=== PATIENT | female | born 1995 | race Two or more races ===

== ENCOUNTER 2020-05-20 05:37 | Day surgery (SDC) | payer BC ==
[2020-05-20] VITALS (8 sets, daily range): BP systolic 101–110; BP diastolic 56–70
[~2020-05-20] VITALS: Ht 165.1 cm; Wt 87.1 kg
[2020-05-20] MEDS ORDERED: LR 1000ml 1,000 ML IVLG SCH (06:26)
[2020-05-20] MEDS ORDERED: Midazolam 2mg/2ml Inj IVP PRN (06:30)
[2020-05-20] MEDS ORDERED: Atropine Inj 1mg/10ml Syr IV PRN (06:30)
[2020-05-20] MEDS ORDERED: DiphenhydrAMINE 50mg/ml Inj IVP PRN (06:30)
[2020-05-20] MEDS ORDERED: fentaNYL 100 mcg/2 mL IV PRN (06:30)
--- NOTE | 2020-05-20 06:31 | Anethesia Preoperative Eval ---
Anesthesia Pre-op PMH/ROS General Date of Evaluation: May 20, 2020 Time of Evaluation: 06:28 Anesthesiologist: yamile ASA Score: ASA 2 Mallampati Score Class I : Soft palate, uvula, fauces, pillars visible Class II: Soft palate, uvula, fauces visible Class III: Soft palate, base of uvula visible Class IV: Only hard plate visible Mallampati Classification: Class II Surgeon: nanda Diagnosis: chronic diarrhea Surgical Procedure: colonoscopy Anesthesia History: none, other - awareness under anesthesia Social History: smoking - nonsmoker Family History: no anesthesia problems Allergies: Coded Allergies: No Known Allergies (Unverified , 05/18/20) Medications: see eMAR Patient NPO?: Yes Past Medical History Gastrointestinal/Genitourinary: Reports: other - chronic diarrhea, abdominal pain Anesthesia Pre-op Phys. Exam Physician Exam Last Vital Signs Date Time Temp Pulse Resp B/P (MAP) Pulse Ox O2 Delivery O2 Flow Rate FiO2 05/20/20 06:08 Room Air 05/20/20 06:04 97.7 58 18 102/61 100 Constitutional: NAD Neurologic: CN 2-12 intact Cardiovascular: other - bradycardia Respiratory: CTA Gastrointestinal: S/NT/ND Airway Exam Mallampati Score: Class II MO: full Neck: flexible TMD: 2fb ROM: full Teeth: intact Anesthesia Pre-op A/P Labs Microbiology Date/Time Source Procedure Growth Status 05/18/20 11:40 Nasopharynx SARS-CoV-2 RdRp Gene Assay - Final Complete Labs Test 05/20/20 05:50 Urine HCG, Qualitative Negative (NEGATIVE) Urine Test Test 05/20/20 05:50 Urine HCG, Qualitative Negative (NEGATIVE) Risk Assessment & Plan Assessment: asa2 Plan: mac Status Change Before Surgery: No Pre-Antibiotics Drug: Judith Husain MD May 20, 2020 06:30
[2020-05-20] MEDS ORDERED: Lidocaine 1% MPF 10mg/ml 5ml ONE (07:00)
[2020-05-20] MEDS ORDERED: Atropine Sulfate 0.4mg/ml inj ONE (07:00)
[2020-05-20] MEDS ORDERED: LR 1000ml ONE (07:00)
--- NOTE | 2020-05-20 07:10 | Pre-Procedure Note/Attestation ---
Pre-Procedure Note/Attestation Complete Prior to Procedure Planned Procedure: not applicable Procedure Narrative: colonoscopy Indications for Procedure Pre-Operative Diagnosis: diarrhea Attestation I attest that I discussed the nature of the procedure; its benefits; risks and complications; and alternatives (and the risks and benefits of such alternatives ), prior to the procedure, with the patient (or the patient's legal personal banking representative). I attest that, if there was a reasonable possibility of needing a blood transfusion, the patient (or the patient's legal personal banking representative) was given the [facility] standardized written summary, pursuant to the Oscar Norris Blood Safety Act ([place] Health and Safety Code # 1645, as amended). I attest that I re-evaluated the patient just prior to the surgery and that there has been no change in the patient's H&P, except as documented below: Alex Aquino MD May 20, 2020 07:10
--- NOTE | 2020-05-20 07:11 | Short Stay Surgery H&P ---
History of Present Illness History of Present Illness Chief Complaint see attached H&P HPI Luzmaria Mckeon is a 24 year old female who was admitted on for Chronic Diarrhea Patient History Allergies: Coded Allergies: No Known Allergies (Unverified , 05/18/20) Medication History No Active Prescriptions or Reported Meds Physical Exam Vital Signs Last Vital Signs Date Time Temp Pulse Resp B/P (MAP) Pulse Ox O2 Delivery O2 Flow Rate FiO2 05/20/20 06:08 Room Air 05/20/20 06:04 97.7 58 18 102/61 100 Labs Laboratory Tests Test 05/20/20 05:50 Urine HCG, Qualitative Negative (NEGATIVE) Plan Attestation Are the patient's medical conditions optimized for surgery? Alex Aquino MD May 20, 2020 07:11
--- NOTE | 2020-05-20 07:48 | Endoscopy Procedure Note ---
Endoscopy Procedure Note General Indication for Procedure: diarrhea Procedures Performed: colonoscopy Operative Findings/Diagnosis: nl Specimen: yes Pt Tolerated Procedure Well: Yes Estimated Blood Loss: none Anesthesia Anesthesiologist: Delfin Randolph Anesthesia: moderate sedation Medications Medication Given: see anesthesia record Inserted Devices Implant(s) used?: No Quality Quality of Bowel Preparation: Excellent GI Core Measures 50 yrs or older w/o bx or poly: Not Applicable 10yrs. F/U recommended: Not Applicable Alex Aquino MD May 20, 2020 07:48
--- NOTE | 2020-05-20 07:49 | Brief Operative Note ---
Immediate Post Operative Note Operative Note Chief Complaint: diarrhea Pre-op Diagnosis: diarrhea Post-op Diagnosis: normal Anesthesiologist: edson rivero Anesthesia: MAC Specimen: yes Complications: none Condition: stable Fluids: per anesthesia Implant(s) used?: No Alex Aquino MD May 20, 2020 07:49
--- NOTE | 2020-05-20 09:44 | Immediate Post-Op Evaluation ---
Immediate Post-Op Evalulation Immediate Post-Op Evalulation Procedure: colonoscopy w/bx Date of Evaluation: May 20, 2020 Time of Evaluation: 08:04 IV Fluids: 650ml lr Blood Products: none Estimated Blood Loss: negligible Blood Pressure Systolic: 104 Blood Pressure Diastolic: 57 Pulse Rate: 58 Respiratory Rate: 18 O2 Sat by Pulse Oximetry: 99 Temperature (Fahrenheit): 97.6 Pain Score (1-10): 0 Nausea: No Vomiting: No Complications none Patient Status: awake, reacts, patent Hydration Status: adequate Drug: Judith Husain MD May 20, 2020 09:44
--- NOTE | 2020-05-20 09:45 | 48 Hour Post Anesthesia Eval ---
Post Anesthesia Evaluation Procedure: colonoscopy w/bx Date of Evaluation: May 20, 2020 Time of Evaluation: 08:06 Blood Pressure Systolic: 104 0: 61 Pulse Rate: 52 Respiratory Rate: 18 Temperature (Fahrenheit): 97.6 O2 Sat by Pulse Oximetry: 99 Airway: patent Nausea: No Vomiting: No Pain Intensity: 0 Hydration Status: adequate Cardiopulmonary Status: stable Mental Status/LOC: patient returned to baseline Post-Anesthesia Complications: none Follow-up care needed: N/A Judith Metzger MD May 20, 2020 09:45
--- NOTE | 2020-05-24 10:15 | Operative Note - Dictated ---
DATE OF OPERATION: 05/20/2020 GASTROENTEROLOGY PROCEDURE REPORT PROCEDURE: Colonoscopy with biopsy. SURGEON: Alex Aquino MD. ANESTHESIA: Please see the separate anesthesiologist notes for details. PRE-ENDOSCOPIC DIAGNOSIS: Diarrhea. POST-ENDOSCOPIC DIAGNOSIS: Normal colonic mucosa as well as 15 to 20 cm of terminal ileal mucosa, status post random biopsies. DESCRIPTION OF PROCEDURE: The procedure, risks, indications, alternatives, and possible complications were explained to the patient and informed consent was obtained. The diagnostic colonoscope was then introduced into the rectum and advanced to 15 to 20 cm into the terminal ileum. The colonoscope was then gradually withdrawn and mucosa examined carefully. Examination of the terminal ileum as well as the colonic mucosa did not reveal any abnormalities. Random biopsies of the terminal ileum, right colon, left colon, and rectosigmoid colon were sent to pathology for review. The colonoscope was removed and the patient was sent to Recovery in good condition. COMPLICATIONS: None. ASSESSMENT: There were no visual abnormalities from this examination to explain the patient's chronic diarrhea. Biopsies will be evaluated to rule out microscopic evidence of inflammatory bowel disease or microscopic colitis. RECOMMENDATIONS: 1. Follow up biopsy results. 2. Outpatient followup. Alex Aquino M.D. DR: EMMA JOB#: [id number] CC:
== END 2020-05-20 08:40 | disposition home or self-care (01) ==
LOC: GAS 05:37
DX: R19.7 Diarrhea, unspecified (principal)
CPT/HCPCS: 45380; 81025; J0461; J2704; J7120; U0002